=== PATIENT | female | born 1990 ===

== ENCOUNTER 2017-07-01 00:33 | Emergency (ER) | payer OTHER ==
[~2017-07-01] VITALS: Ht 167.6 cm; Wt 66.1 kg
[2017-07-01 00:37] VITALS: TEMP 36.9; Ht 167.6 cm; Wt 66.1 kg
[2017-07-01] MEDS ORDERED: THYR32.55 PO (01:11)
[2017-07-01] MEDS ORDERED: PROG100C6 PV (01:11)
[2017-07-01] MEDS ORDERED: PRENTAB26 PO (01:11)
[2017-07-01] MEDS ORDERED: PROG100C6 PO (01:11)
[2017-07-01 01:21] LABS: URINE APPEARANCE CLEAR (CLEAR); URINE BILIRUBIN NEG (NEG); URINE COLOR YELLOW; URINE NITRITE NEG (NEG); URINE PH 6.5 (4.5-7.5); URINE SPECIFIC GRAVITY 1.012 (1.000-1.030); UROBILINOGEN NEG (NEG); ZZUR CULT IF INDIC CLEAN CATCH NO
[2017-07-01 01:23] LABS: MANUAL MICROSCOPIC REQUIRED? NO; REVIEW REQ? NO
[2017-07-01 01:25] LABS: BASO % 0.1 %; BASO ABS # 0.01 K/uL (0-0.2); COMPLETE YES; HEMATOCRIT 36.5 % (37-47); IG% 0.1 %; LYMPH % 35.9 %; LYMPH ABS # 2.63 K/uL (1.2-3.4); MEAN CELL VOLUME 87.1 fL (80-100); MEAN CORPUSCULAR HEMOGLOBIN 29.8 pg (25-34); MEAN CORPUSCULAR HGB CONC 34.2 g/dl (32-36); MEAN PLATELET VOLUME 9.3 fL (7.4-10.4); MONO % 7.7 %; NEUT % 55.2 %; PLATELET COUNT 171 K/uL (130-400); RED BLOOD COUNT 4.19 M/uL (4.2-5.4); WHITE BLOOD COUNT 7.32 K/uL (4.8-10.8)
[2017-07-01 01:35] LABS: PROTHROMBIN TIME (PATIENT) 10.7 SECONDS (9.0-12.0)
--- NOTE | 2017-07-01 04:21 | EMERGENCY ROOM VISIT NOTE ---
History Report prepared by Charlee: Pamella Griffith Under the Supervision of: Missy FischerO. First contact with patient: 00:42 Chief Complaint: OTHER COMPLAINT Stated Complaint: MISCARRIAGE History of Present Illness The patient is a 26 year old female who presents to the Emergency Room with complaints of persistent vaginal bleeding starting 1730 today. She is 5 weeks . The patient started having left lower abdominal cramping yesterday. The pain worsened overnight. She is now having sharp intermittent pain. At 1730 today she started having vaginal bleeding. She states that the blood is red and the flow is similar to a period. She is not passing any clots. She reports headache. Her bowel movement this morning was looser than usual. She denies any heavy lifting, change in activity, or sexual intercourse. She denies any fever, chills, nausea, vomiting, back pain, or urinary symptoms. She is . Her last 2 miscarriages were at 6-7 weeks. She states her current symptoms do not feel like her prior miscarriages. She has been taking progesterone for fertility treatment. She is on a thyroid medication. She is on a vitamin. She is AB positive. Source of History: patient Onset: 1729 Position: other (vaginal) Quality: other (bleeding) Timing: other (persistent) Associated Symptoms: + headache, + abdominal pain, No fevers, No chills, No nausea, No vomiting, No back pain, No urinary symptoms Note: Pt reports loose stool. Review of Systems See HPI for pertinent positives & negatives. A total of 10 systems reviewed and were otherwise negative. Past Medical & Surgical Medical Problems: (1) Miscarriage Family History No pertinent family history stated. Social History Smoking Status: Never Smoker Marital Status: Occupation Status: unemployed Current/Historical Medications Scheduled Multivit/Min/Iron/Fol Ac/Pren ( Vitamin), 1 TAB PO DAILY Progesterone (Prometrium), 100 MG PO HS Progesterone (Prometrium), 100 MG PV HS Thyroid (Nature-Throid), 65 MG PO QAM Allergies Coded Allergies: No Known Allergies (Unverified , 07/01/17) Physical Exam Vital Signs Date Time Temp Pulse Resp B/P (MAP) Pulse Ox O2 Delivery O2 Flow Rate FiO2 07/01/17 04:38 64 18 137/71 99 07/01/17 02:55 70 18 112/75 98 Room Air 07/01/17 01:51 73 16 118/58 99 Room Air 07/01/17 00:37 36.9 77 16 128/86 96 Room Air Physical Exam GENERAL: alert, tearful appearing, well nourished, no distress, non-toxic EYE EXAM: normal conjunctiva, PERRL and EOM's grossly intact OROPHARYNX: no exudate, no erythema, lips, buccal mucosa, and tongue normal and mucous membranes are moist NECK: supple, no nuchal rigidity, no adenopathy, non-tender LUNGS: Clear to auscultation. Normal chest wall mechanics HEART: no murmurs, S1 normal and S2 normal ABDOMEN: abdomen soft, non-tender, normo-active bowel sounds, no masses, no rebound or guarding. BACK: Back is symmetrical on inspection and there is no deformity, no midline tenderness, no CVA tenderness. SKIN: no rashes and no bruising UPPER EXTREMITIES: upper extremities are grossly normal. LOWER EXTREMITIES: No pitting edema. NEURO EXAM: Normal sensorium, cranial nerves II-XII [grossly] intact, normal speech, no [gross] weakness of arms, no [gross] weakness of legs. [No drift. Finger to nose intact. Gross sensation intact.] Medical Decision & Procedures ER Provider Diagnostic Interpretation: Radiology results have been interpreted by the [facility] radiologist and reviewed by me. US OB 1st trimester: No intrauterine . Endometrium measure 1.1 cm in thickness. In the setting of positive beta hCG findings may represent very early , loss or ectopic . Recommend correlation with serial beta hCG levels and follow-up ultrasound as clinically indicated. Left ovarian cystic structure with debris measuring 1.9 cm, possibly corpus luteum cyst. Small free fluid in the left adnexa. Cyst rupture not excluded. Correlate clinically. Laboratory Results 07/01/17 01:16 Red Blood Count 4.19, Mean Corpuscular Volume 87.1, Mean Corpuscular Hemoglobin 29.8, Mean Corpuscular Hemoglobin Concent 34.2, Mean Platelet Volume 9.3, Neutrophils (%) (Auto) 55.2, Lymphocytes (%) (Auto) 35.9, Monocytes (%) (Auto) 7.7, Eosinophils (%) (Auto) 1.0, Basophils (%) (Auto) 0.1, Neutrophils # (Auto) 4.04, Lymphocytes # (Auto) 2.63, Monocytes # (Auto) 0.56, Eosinophils # (Auto) 0.07, Basophils # (Auto) 0.01 Test 07/01/17 00:59 07/01/17 01:16 Urine Color YELLOW Urine Appearance CLEAR (CLEAR) Urine pH 6.5 (4.5-7.5) Urine Specific [place] 1.012 (1.000-1.030) Urine Protein NEG (NEG) Urine Glucose (UA) NEG (NEG) Urine Ketones NEG (NEG) Urine Occult Blood 2+ (NEG) Urine Nitrite NEG (NEG) Urine Bilirubin NEG (NEG) Urine Urobilinogen NEG (NEG) Urine Leukocyte Esterase NEG (NEG) Urine WBC (Auto) 1-5 /hpf (0-5) Urine RBC (Auto) 5-10 /hpf (0-4) Urine Hyaline Casts (Auto) 1-5 /lpf (0-5) Urine Epithelial Cells (Auto) 10-20 /lpf (0-5) Urine Bacteria (Auto) NEG (NEG) White Blood Count 7.32 K/uL (4.8-10.8) Red Blood Count 4.19 M/uL (4.2-5.4) Hemoglobin 12.5 g/dL (12.0-16.0) Hematocrit 36.5 % (37-47) Mean Corpuscular Volume 87.1 fL (80-100) Mean Corpuscular Hemoglobin 29.8 pg (25-34) Mean Corpuscular Hemoglobin Concent 34.2 g/dl (32-36) Platelet Count 171 K/uL (130-400) Mean Platelet Volume 9.3 fL (7.4-10.4) Neutrophils (%) (Auto) 55.2 % Lymphocytes (%) (Auto) 35.9 % Monocytes (%) (Auto) 7.7 % Eosinophils (%) (Auto) 1.0 % Basophils (%) (Auto) 0.1 % Neutrophils # (Auto) 4.04 K/uL (1.4-6.5) Lymphocytes # (Auto) 2.63 K/uL (1.2-3.4) Monocytes # (Auto) 0.56 K/uL (0.11-0.59) Eosinophils # (Auto) 0.07 K/uL (0-0.5) Basophils # (Auto) 0.01 K/uL (0-0.2) RDW Standard Deviation 37.8 fL (36.4-46.3) RDW Coefficient of Variation 11.9 % (11.5-14.5) Immature Granulocyte % (Auto) 0.1 % Immature Granulocyte # (Auto) 0.01 K/uL (0.00-0.02) Prothrombin Time 10.7 SECONDS (9.0-12.0) Prothromb Time International Ratio 1.0 (0.9-1.1) Thyroid Stimulating Hormone (TSH) 1.510 uIu/ml (0.300-4.500) Human Chorionic Gonadotropin, Quant 5 mIU/mL Laboratory results per my review. ED Course 0053: The patient was evaluated in room A10. A complete history and physical exam was performed. 0413: Upon reevaluation, the patient is feeling better. I discussed the findings and the treatment plan with the patient. She verbalizes agreement and understanding. Pt asking to go home. Did not want pelvic exam and I feel this is reasonable given circumstances. VS stable. Pt not orthostatic. No significant pain here. Discussed f/u with writing center director. She was discharged home. Medical Decision Differential diagnosis: Etiologies such as ectopic , dysfunction uterine bleeding, bleeding dyscrasia, trauma, infection, as well as others were entertained. Patient likely with recurrent miscarriage given prior history and symptoms as well as low hCG and ultrasound findings. Patient well-appearing here, no orthostatic symptoms, H&H stable, vital signs stable. Patient AB+ and not need of RhoGAM. Discussed with patient close follow-up with [facility] for repeat hCG as a precaution, and potential repeat ultrasound. Discussed symptoms to watch and return for, she verbalized understanding was agreeable with plan. Have a low suspicion for ectopic , molar , or additional GI or pathology she reading the pain. Discussed with patient possible early left ovarian cyst, I feel this is more likely an incidental finding on ultrasound. Medication Reconcilliation Current Medication List: was personally reviewed by me Blood Pressure Screening Patient's blood pressure: Normal blood pressure Blood pressure disposition: Did not require urgent referral Impression Primary Impression: Vaginal bleeding Additional Impression: Scribe Attestation The scribe's documentation has been prepared under my direction and personally reviewed by me in its entirety. I confirm that the note above accurately reflects all work, treatment, procedures, and medical decision making performed by me. Departure Information Dispostion Home / Self-Care Referrals No Doctor, Assigned (PCP) Patient Instructions [facility] Additional Instructions Please follow up with your [facility]. Please continue to monitor symptoms. If you develop any worsening pain, have worsening bleeding, feel dizzy or lightheaded, develop vomiting, fevers, or you have any other new concerns, please return to the ER immediately. Your hormone level from the blood needs to be rechecked given your symptoms. In a miscarriage this should continue to clear to zero. If it is going up or you have persistent symptoms, you need to have a repeat US to re-evaluate for an ectopic . Problem Qualifiers Additional Impression: Weeks of gestation: less than 8 weeks Qualified Codes: Z3A.01 - Less than 8 weeks gestation of
[2017-07-01 04:38] VITALS: BP 137/71; PULSE 64; O2SAT 99
--- NOTE | 2017-07-01 07:37 | DIAGNOSTIC IMAGING REPORT ---
<14 WKS SINGLE, PELVIC ULTRASOUND CLINICAL HISTORY: , bleeding, lower abdominal pain COMPARISON STUDY: None. FINDINGS: Transabdominal and transvaginal scanning of the pelvis was performed. The uterus is retroflexed. Heterogeneous endometrial stripe measuring up to 1.1 cm in thickness. No intrauterine gestational sac identified. There are preserved normal in size and demonstrate normal color flow. There is a 1.9 cm thick-walled cyst within the left ovary. This favors a corpus luteum. Trace fluid within the left adnexa. No adnexal masses identified. IMPRESSION: 1. No evidence for an intrauterine gestational sac. 2. No adnexal masses identified. 3. Trace fluid at the left adnexa. 4. In the setting of a positive test this could represent an early intrauterine gestation, recent spontaneous , or nonvisualized ectopic . Follow-up beta-hCG and/or pelvic ultrasound is recommended for further evaluation. Electronically signed by: Jero Mcneil M.D. 07/01/2017 7:36 AM Dictated Date/Time: 07/01/2017 7:32 AM
== END 2017-07-01 04:40 | disposition home or self-care (01) ==
LOC: C.EDB 00:35 → C.EDA 04:40
DX: O20.8 Other hemorrhage in early pregnancy (principal); Z3A.01 Less than 8 weeks gestation of pregnancy; N83.202 Unspecified ovarian cyst, left side